=== PATIENT | female | born 1980 | race African-American/Black ===

== ENCOUNTER 2025-03-20 07:51 | Outpatient (REF) | payer OTHER, SELFPAY ==
--- NOTE | ~2025-03-20 | XR_ITS ---
EXAMINATION: XR PELVIS 1-2 VIEWS HISTORY: M25.559 - Pain in unspecified hip COMPARISON: There are no prior studies available for comparison. FINDINGS: A single AP view of the pelvis is submitted. Osseous mineralization is normal. There is a fracture of the lateral aspect of the right femoral head which may be subacute or chronic. Fracture margins are blurred. No additional fracture is seen. There is no dislocation. There is mild narrowing of the right hip joint. There are phleboliths in the pelvis. XR/XR pelvis 1-2V IMPRESSION: Findings suggestive of a subacute versus chronic fracture of the lateral aspect of the right femoral head. Electronically signed by: Noel Garrison MD 03/20/2025 09:55 AM EDT
== END 2025-03-20 07:52 | disposition home or self-care (01) ==
LOC: HO.HOSX 07:51
PROVIDERS: Visit Provider Orthopaedic Surgery
DX: M25.551 Pain in right hip (principal); M87.051 Idiopathic aseptic necrosis of right femur
CPT/HCPCS: 72170; 99202

== ENCOUNTER 2025-03-20 08:52 | Outpatient (AMB) | payer OTHER, SELFPAY ==
--- NOTE | 2025-03-20 08:54 | MHC.OFFVIS ---
Vital Signs 03/20/25 09:04 Height 5 ft 1 in Weight 136 lb BMI 25.7 Handedness Right Intake Visit Reasons: [employer]OR-R hip pain Intake Note: Hilaria is a 44 year old female who presents today as a new patient with complaints of right hip pain. Patient reports that she has had ongoing pain since about summer. The pain is felt along the lateral aspect of the hip, she mentions that she has fracture in this area. Denies numbness and tingling. Denies any previous treatments. 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 Patient reports that she has had ongoing pain since about summer. The pain is felt along the lateral aspect of the hip, she mentions that she has fracture in this area. Denies numbness and tingling. Denies any previous treatments. She states that about 3 months ago the pain was worse but now she feels that the pain is tolerable. She in fact denies pain but states that it is occasionally sore. It used to be very sore when she started walking and was having pain at rest. She is a healthy young woman with no history of steroid use. She does say she used to drink alcohol but no longer does. [facility] Surgical History (Updated 03/20/25 @ 09:13 by Adriane Conklin CMA) Jasper teeth removed Social History (Updated 03/20/25 @ 09:13 by Adriane Conklin CMA) Current occupational status: employed Current occupation: [employer] Physical Exam Vital Signs: BMI result Body Mass Index 25.7 Extrem Other: On physical exam she has a very mild Trendelenburg gait. She is mildly positive impingement test but otherwise normal exam Results Reviewed Results Reviewed: I personally reviewed relevant radiographs. There is likely focus of avascular necrosis with chondral collapse superior lateral femoral head Assessment & Plan Assessment & Plan (1) Avascular necrosis of bone of right hip: Code(s): M87.051 - Idiopathic aseptic necrosis of right femur Category: Medical Plan: 44-year-old woman with likely AVN of the right hip. There is what appears to be collapse although it is slightly atypical in appearance. She has surprisingly minimally symptomatic and I do not see a role for acute surgical intervention. I do think an MRI would be reasonable. Orders: Orders MR hip RT wo con Today M87.051 - Idiopathic aseptic necrosis of right femur XR pelvis 1-2V Today M25.559 - Pain in unspecified hip Coding Level of Care Code New Pt Level 4 (64384) Diagnoses Avascular necrosis of bone of right hip M87.051
[2025-03-20 09:04] VITALS: BMI 25.7
== END 2025-03-20 09:31 | disposition home or self-care (01) ==
LOC: HO.HOS 08:52
PROVIDERS: Visit Provider Orthopaedic Surgery
DX: M87.051 Idiopathic aseptic necrosis of right femur (principal)
CPT/HCPCS: 99204

== ENCOUNTER → 2025-03-20 08:54 | Outpatient (BNV) | payer OTHER, SELFPAY | PROVIDERS: Visit Provider Radiology Diagnostic Radiology | DX: S72.051A Unspecified fracture of head of right femur, initial encounter for closed fracture (principal) | CPT/HCPCS: 72170 ==